=== PATIENT | male | born 1955 | race Caucasian/White ===

== ENCOUNTER → 2020-11-15 | Outpatient (CLI) | payer MEDICARE, OTHER ==
--- NOTE | 2020-11-15 19:54 | XR ---
Left foot HISTORY: Heel pain for 2 months, M 79.672 2 views of the left foot Bone mineralization, joint spaces and alignment are maintained. There is a plantar calcaneal spur, so me calcification present along the plantar aponeurosis, enthesophyte present at the insertion of the Achilles tendon. IMPRESSION: Calcaneal spur.
== END | disposition home or self-care (01) ==
LOC: RADXRMAIN 16:18
PROVIDERS: ATTEND Internal Medicine
DX: M77.32 Calcaneal spur, left foot (principal)

== ENCOUNTER → 2023-06-08 | Outpatient (CLI) | payer MEDICARE, OTHER ==
--- NOTE | 2023-06-09 21:58 | XR ---
EXAMINATION TYPE: XR chest 2V DATE OF EXAM: 06/08/2023 COMPARISON: 05/24/2023 HISTORY: 67-year-old male J18.9 PNEUMONIA, UNSPECIFIED ORGANISM TECHNIQUE: Frontal and lateral views FINDINGS: Heart normal size. Aortopulmonary vasculature within normal limits. Hyperinflation. Residual right in frahilar and medial right basilar opacity though with some improvement compared to 06/01/2023. No siza ble pleural effusion. IMPRESSION: COPD with some residual right infrahilar and right middle lobe opacity though with improvement compar ed to 05/24/2023. Ongoing follow-up to ensure complete clearance. If there is persistence of residual opacity, further contrast enhanced CT evaluation will be recommended to exclude underlying neoplasm.
== END | disposition home or self-care (01) ==
LOC: RADXRMAIN 15:09
PROVIDERS: ATTEND Internal Medicine
DX: J44.9 Chronic obstructive pulmonary disease, unspecified (principal); J18.9 Pneumonia, unspecified organism
CPT/HCPCS: 71046

== ENCOUNTER → 2023-07-23 | Outpatient (CLI) | payer MEDICARE, OTHER ==
--- NOTE | 2023-07-23 15:41 | XR ---
EXAMINATION TYPE: XR chest 2V DATE OF EXAM: 07/23/2023 3:05 PM COMPARISON: Chest radiographs from 06/08/2023 TECHNIQUE: XR chest 2V Frontal and lateral views of the chest. CLINICAL INDICATION:Male, 67 years old with history of Z87.01 PERSONAL HISTORY OF PNEUMONIA (RECURREN T); FINDINGS: Lungs/Pleura: There is flattening of the diaphragm with increased lucency of the lungs. No evidence o f pneumothorax, pleural effusion or focal consolidation. Pulmonary vascularity: Unremarkable. Heart/mediastinum: Cardiomediastinal silhouette is unremarkable. Musculoskeletal: No acute osseous pathology. IMPRESSION: 1. No acute cardiopulmonary disease process. Resolution of previously demonstrated right middle lobe pneumonia. 2. COPD changes.
== END | disposition home or self-care (01) ==
LOC: RADXRMAIN 14:52
PROVIDERS: ATTEND Internal Medicine
DX: J44.9 Chronic obstructive pulmonary disease, unspecified (principal); Z87.01 Personal history of pneumonia (recurrent)
CPT/HCPCS: 71046